=== PATIENT | female | born 1985 | race Caucasian/White ===

== ENCOUNTER 2017-03-09 17:32 | Emergency (ER) | payer SELFPAY ==
[~2017-03-09] VITALS: Ht 157.5 cm; Wt 80.0 kg
[~2017-03-09 17:32] MED LIST: ASACOL400 MG PO; BACTRIM DS1 TAB PO; CEPHALEXIN500 M1 OR; CIPRO500 MG OR; CIPROFLOXACN500 MG PO; CLARITIN10 MG OR; CLARITIN10 MG PO; FERROUS SULF325 M2 PO; FLONASE NASAL50 MCG; FLONASE0.05 %; FLOXIN OTIC0.3 % OT; IMITREX25 MG PO; KEFLEX500 MG PO; KETOROLAC60 MG/2 ML IJ; MEDDOSEPAK OR; MOTRIN800 MG OR; MUCINEX600 MG PO; NAPROSYN500 MG PO; NO HOME MEDS; NO MEDS; ONDANSETRON4 MG PO; SILVADENE1 % EX; ULTRAM50 M1 PO; ULTRAM50 MG OR; ZITHROMAX250 MG PO; ZOFRAN ODT4 MG PO; ZOFRAN ODT8 MG SL; ZPAK OR; robitussin ac OR
[2017-03-09] MEDS ORDERED: ULTRAM50 M1 PO (18:13)
[2017-03-09] MEDS ORDERED: CLEOCIN150 MG PO (18:13)
[2017-03-09 18:22] VITALS: BP 140/95
== END 2017-03-09 18:23 | disposition home or self-care (01) | DRG 159 ==
LOC: ED 17:32
DX: K08.89 Other specified disorders of teeth and supporting structures (principal)

== ENCOUNTER 2020-01-23 08:31 | Emergency (ER) | payer OTHER ==
[~2020-01-23] VITALS: Ht 157.5 cm; Wt 80.0 kg
[~2020-01-23 08:31] MED LIST changes: +CLEOCIN150 MG PO
[2020-01-23 09:22] LABS: HEMATOCRIT 37.9 % (37.0-47.0); HEMOGLOBIN 11.5 g/dl (12.0-16.0); IMMATURE GRANULOCYTES 0.3 % (0.0-5.0); MEAN CELL VOLUME 77.2 fL CALC (80.0-100.0); MEAN CORPUSCULAR HGB 23.4 pG CALC (26.0-32.0); MEAN CORPUSCULAR HGB CONC 30.3 g/dL CAL (32.0-36.0); NEUT# 4.55 thou/uL (2.00-7.15); RED BLOOD COUNT 4.91 mill/uL (4.20-5.60); RED CELL DISTRI WIDTH 17.9 % (11.5-15.5)
[2020-01-23 09:25] LABS: URINE BILIRUBIN - DIPSTICK NEGATIVE (NEGATIVE); URINE BLOOD DIPSTICK NEGATIVE (NEGATIVE); URINE COLOR YELLOW; URINE GLUCOSE - DIPSTICK NEGATIVE (NEGATIVE); URINE KETONE NEGATIVE (NEGATIVE); URINE LEUK ESTERASE NEGATIVE (NEGATIVE); URINE NITRITE - DIPSTICK NEGATIVE (Negative); URINE PH 6.5 (4.5-8.0); URINE PROTEIN - DIPSTICK NEGATIVE (NEG-TRACE); URINE UROBILINOGEN - DIPSTICK 0.2 E.U./dL (0.2)
[2020-01-23 09:45] LABS: ALBUMIN 4.3 g/dL (3.2-5.0); ALKALINE PHOSPHATASE 93 u/l (38-126); AMYLASE 94 u/l (30-110); ANION GAP 8 (6-22 (CALC)); BUN 8 mg/dL (7-17); BUN/CREATININE RATIO 14 (12-20 (CALC)); CARBON DIOXIDE 26 mmol/l (22-30); CHLORIDE 105 mmol/l (95-108); CREATININE 0.6 mg/dL (0.5-1.0); GFR > 60 ML/MIN (>=60 (CALC)); GFR FOR AFR.AMER. > 60 ML/MIN (>=60 (CALC)); LIPASE 85 u/l (23-300); POTASSIUM 3.6 mmol/l (3.5-5.1); SODIUM 135 mmol/l (137-146); TOTAL PROTEIN 7.9 g/dL (6.3-8.2)
[2020-01-23 09:52] LABS: BILIRUBIN, TOTAL 0.5 mg/dL (0.0-1.4); SGOT/AST 36 u/l (14-36)
[2020-01-23] MEDS ORDERED: ULTRAM50 MG PO (11:04)
[2020-01-23 11:16] VITALS: BP 153/94
== END 2020-01-23 11:16 | disposition home or self-care (01) ==
LOC: ED 08:31
DX: R10.31 Right lower quadrant pain (principal)
CPT/HCPCS: Q9967

== ENCOUNTER 2020-11-18 16:18 | Emergency (ER) | payer MEDICAID ==
[~2020-11-18] VITALS: Ht 157.5 cm; Wt 90.9 kg
[~2020-11-18 16:18] MED LIST changes: +ULTRAM50 MG PO
[2020-11-18 19:23] VITALS: BP 140/87
== END 2020-11-18 19:23 | disposition home or self-care (01) ==
LOC: ED 16:18
DX: B34.9 Viral infection, unspecified (principal); Z20.822 Contact with and (suspected) exposure to COVID-19

== ENCOUNTER 2022-04-05 13:47 | Emergency (ER) | payer MEDICAID ==
[~2022-04-05] VITALS: Ht 157.5 cm; Wt 79.3 kg
[2022-04-05] VITALS (8 sets, daily range): BP systolic 134–167; BP diastolic 84–111
[2022-04-05 17:37] LABS: BASO% 0.7 % (0-3); EOS% 2.9 % (0-8); HEMATOCRIT 37.2 % (37.0-47.0); HEMOGLOBIN 11.7 g/dl (12.0-16.0); IMMATURE GRANULOCYTES 0.5 % (0.0-5.0); MEAN CELL VOLUME 75.8 fL CALC (80.0-100.0); MEAN CORPUSCULAR HGB 23.8 pG CALC (26.0-32.0); MEAN CORPUSCULAR HGB CONC 31.5 g/dL CAL (32.0-36.0); MONO% 9.7 % (2-13); NEUT# 3.37 thou/uL (2.00-7.15); NEUT% 46.2 % (42-76); RED BLOOD COUNT 4.91 mill/uL (4.20-5.60); RED CELL DISTRI WIDTH 17.8 % (11.5-15.5)
[2022-04-05 17:47] LABS: ALBUMIN 4.4 g/dL (3.2-5.0); ALKALINE PHOSPHATASE 97 u/l (38-126); ANION GAP 13 (6-22 (CALC)); BUN 9 mg/dL (7-17); BUN/CREATININE RATIO 14 (12-20 (CALC)); CARBON DIOXIDE 23 mmol/l (22-30); CHLORIDE 108 mmol/l (95-108); CREATININE 0.7 mg/dL (0.5-1.0); GFR FOR AFR.AMER. > 60 ML/MIN (>=60 (CALC)); GFR OTHER RACES > 60 ML/MIN (>=60 (CALC)); POTASSIUM 3.4 mmol/l (3.5-5.1); SGOT/AST 34 u/l (14-36); SODIUM 140 mmol/l (137-146); TOTAL PROTEIN 8.1 g/dL (6.3-8.2)
[2022-04-05 17:49] LABS: BILIRUBIN, TOTAL 0.2 mg/dL (0.0-1.4)
[2022-04-05] MEDS ORDERED: PREDNISONE50 MG PO (18:56)
[2022-04-05] MEDS ORDERED: PROVENTIL HFA IN (18:56)
[2022-04-05] MEDS ORDERED: DOXY-CAPS100 MG PO (18:56)
== END 2022-04-05 19:30 | disposition home or self-care (01) ==
LOC: ED 13:47
PROVIDERS: Family Medicine
DX: J06.9 Acute upper respiratory infection, unspecified (principal); Z20.822 Contact with and (suspected) exposure to COVID-19

== ENCOUNTER 2022-08-09 13:39 | Emergency (ER) | payer MEDICAID ==
[2022-08-09] VITALS (10 sets, daily range): BP systolic 126–156; BP diastolic 67–96
[~2022-08-09] VITALS: Ht 157.5 cm; Wt 72.7 kg
[~2022-08-09 13:39] MED LIST changes: +DOXY-CAPS100 MG PO; +PREDNISONE50 MG PO; +PROVENTIL HFA IN
[2022-08-09 15:40] LABS: BASO% 0.7 % (0-3); EOS% 3.1 % (0-8); HEMATOCRIT 36.4 % (37.0-47.0); IMMATURE GRANULOCYTES 0.3 % (0.0-5.0); MEAN CELL VOLUME 75.7 fL CALC (80.0-100.0); MEAN CORPUSCULAR HGB 22.9 pG CALC (26.0-32.0); MEAN CORPUSCULAR HGB CONC 30.2 g/dL CAL (32.0-36.0); MONO% 7.8 % (2-13); NEUT# 8.16 thou/uL (2.00-7.15); NEUT% 80.1 % (42-76); RED BLOOD COUNT 4.81 mill/uL (4.20-5.60); RED CELL DISTRI WIDTH 17.1 % (11.5-15.5)
[2022-08-09 15:52] LABS: ALBUMIN 4.2 g/dL (3.2-5.0); ALKALINE PHOSPHATASE 93 u/l (38-126); ANION GAP 12 (6-22 (CALC)); BUN 5 mg/dL (7-17); BUN/CREATININE RATIO 8 (12-20 (CALC)); CARBON DIOXIDE 24 mmol/l (22-30); CHLORIDE 105 mmol/l (95-108); CREATININE 0.6 mg/dL (0.5-1.0); GFR FOR AFR.AMER. > 60 ML/MIN (>=60 (CALC)); GFR OTHER RACES > 60 ML/MIN (>=60 (CALC)); POTASSIUM 3.3 mmol/l (3.5-5.1); SGOT/AST 31 u/l (14-36); SODIUM 137 mmol/l (137-146); TOTAL PROTEIN 7.7 g/dL (6.3-8.2)
[2022-08-09 15:56] LABS: BILIRUBIN, TOTAL 0.1 mg/dL (0.02-1.3)
[2022-08-09 17:07] LABS: URINE BILIRUBIN - DIPSTICK NEGATIVE (NEGATIVE); URINE BLOOD DIPSTICK NEGATIVE (NEGATIVE); URINE COLOR YELLOW; URINE GLUCOSE - DIPSTICK NEGATIVE (NEGATIVE); URINE KETONE NEGATIVE (NEGATIVE); URINE LEUK ESTERASE NEGATIVE (NEGATIVE); URINE PROTEIN - DIPSTICK NEGATIVE (NEG-TRACE); URINE SPECIFIC GRAVITY <=1.005; URINE UROBILINOGEN - DIPSTICK 0.2 E.U./dL (0.2)
[2022-08-09 17:08] LABS: URINE NITRITE - DIPSTICK NEGATIVE (Negative)
[2022-08-09] MEDS ORDERED: ONDANSETRON4 MG PO (17:41)
== END 2022-08-09 18:00 | disposition home or self-care (01) ==
LOC: ED 13:39
PROVIDERS: Nurse Practitioner
DX: R11.10 Vomiting, unspecified (principal); R19.7 Diarrhea, unspecified; M79.10 Myalgia, unspecified site; Z20.822 Contact with and (suspected) exposure to COVID-19

== ENCOUNTER 2023-06-03 18:43 | Emergency (ER) | payer SELFPAY ==
[~2023-06-03] VITALS: Ht 157.5 cm; Wt 85.0 kg
[2023-06-03] MEDS ORDERED: predniSONE 20 MG/TAB PO ONE (20:25)
[2023-06-03] MEDS ORDERED: ACETAMINOPHEN 500 MG TAB PO ONE (20:25)
[2023-06-03] MEDS ORDERED: IBUPROFEN 600 MG/TAB PO ONE (20:25)
[2023-06-03] MEDS ORDERED: MEDDOSEPAK PO (21:15)
[2023-06-03 21:23] VITALS: BP 152/92
== END 2023-06-03 21:53 | disposition home or self-care (01) | DRG 153 ==
LOC: ED 18:43
DX: J06.9 Acute upper respiratory infection, unspecified (principal); J30.9 Allergic rhinitis, unspecified; Z20.822 Contact with and (suspected) exposure to COVID-19